=== PATIENT | male | born 1955 | race Caucasian/White ===

== ENCOUNTER 2021-12-22 12:42 | Outpatient (REF) | payer MEDICARE, SELFPAY | END 2021-12-22 12:43 | disposition home or self-care (01) | LOC: HO.BBR 12:42 | PROVIDERS: PCP Internal Medicine; Visit Provider Internal Medicine Hematology | DX: D45 Polycythemia vera (principal) | CPT/HCPCS: 85014; 85018; 99195 ==

== ENCOUNTER 2021-12-27 07:55 | Outpatient (REF) | payer MEDICARE, SELFPAY | END 2021-12-27 07:56 | disposition home or self-care (01) | LOC: HO.BBR 07:55 | PROVIDERS: Visit Provider Internal Medicine Hematology | DX: D45 Polycythemia vera (principal) | CPT/HCPCS: 85014; 85018; 99195 ==